=== PATIENT | male | born 1945 | race Caucasian/White ===

== ENCOUNTER 2016-05-20 10:21 | Emergency (ER) | payer OTHER ==
[2016-05-20] MEDS ORDERED: ASPIRIN PO STA (10:31)
[2016-05-20] MEDS ORDERED: NITROGLYCERIN SL PRN (10:31)
[2016-05-20 10:42] LABS: MANUAL DIFF NEEDED? NO
--- NOTE | 2016-05-20 10:43 | PROVIDER DOCUMENTATION ---
HPI-Chest Pain - General Source: patient - History of Present Illness-CP Chest Pain Radiation: reports: arms (left arm, left elbow) Quality of Pain: reports: aching, sharp Severity in ED: mild Onset/Duration: 3 days ago Timing: still present Context/Activities at Onset: reports: other (starts when using left arm) Associated Symptoms: denies: fever/chills, headache, vomiting Nitro Today/Relief: no nitro taken today Aspirin Treatment Today: 81 mg x 1 Prior Chest Pain/Cardiac Workup: reports: no prior chest pain Similar Symptoms Previously?: No Recently Seen Here or By Another Healthcare Provider: No <Felisha Lackey - Last Filed: 05/20/16 10:38> <Sherri Mayo - Last Filed: 05/20/16 14:13> - General Chief Complaint: Chest Pain Stated Complaint: CHEST PAIN Time Seen by Provider: 05/20/16 10:38 Allergies/Adverse Reactions: Patient Allergies Allergy/AdvReac Type Severity Reaction Status Date / Time No Known Allergies Allergy Verified 05/20/16 11:04 Home Medications: Home Medication List Medication Instructions Recorded Confirmed Last Taken Type Amlodipine [Norvasc] 10 mg PO DAILY 05/20/16 05/20/16 05/20/16 06:30 History Aspirin [Nelli Chewable Aspirin] 81 mg PO DAILY 05/20/16 05/20/16 05/20/16 08: 00 History Brimonidine/Timolol Ophth Soln 1 drop .SEE ORDER BID 05/20/16 05/20/16 05/20/16 08:00 History [Combigan Ophth Soln] Celecoxib [Celebrex] 200 mg PO DAILY 05/20/16 05/20/16 05/20/16 08:00 History Clopidogrel Bisulfate [Plavix] 75 mg PO DAILY 05/20/16 05/20/16 05/20/16 06:30 History Esomeprazole Magnesium [Nexium] 20 mg PO DAILY 05/20/16 05/20/16 05/20/16 08:00 History Fexofenadine [Margi] 180 mg PO DAILY 05/20/16 05/20/16 05/20/16 08:00 History Hydrocodone/APAP 7.5 mg/325 mg 7.5 mg PO TID 05/20/16 05/20/16 05/20/16 08:00 History [[place]-7.5] Latanoprost 0.005% Oph Soln 1 drop HS 05/20/16 05/20/16 05/19/16 20:00 History [Xalatan 0.005% Oph Soln] Losartan [Cozaar] 100 mg PO DAILY 05/20/16 05/20/16 05/20/16 06:30 History Pregabalin [Lyrica] 150 mg PO BID 05/20/16 05/20/16 05/20/16 08:00 History Simvastatin 80 mg PO DAILY 05/20/16 05/20/16 05/20/16 06:30 History - History of Present Illness-CP Nature of Presenting Problem: pt is a 70 y/o m present to the Er with complaints of chest pain. pt states chest pain started friday and radiates to the left arm down to the left elbow. chest pain is not consistent it is intermittent. pt denies hx of heart problems. father had a pacemaker. pt denies cough or epitaxis. pt states he has some nasal congestion. pt has hx of HTN, Hyperlipidemia, stents to the left extremity, glaucoma. (Felisha Lackey) Review of Systems - Adult - REVIEW OF SYSTEMS - ADULT Constitutional: denies: chills, fatique, night sweats, weight gain Eyes: reports: no symptoms reported Ears, Nose, Mouth & Throat: reports: no symptoms reported Cardiovascular: reports: chest pain. denies: edema, syncope Respiratory: denies: cough, shortness of breath, wheezing Gastrointestinal: reports: no symptoms reported Genitourinary: reports: no symptoms reported Musculoskeletal: reports: no symptoms reported Integumentary: reports: no symptoms reported Neurological: reports: no symptoms reported Psychiatric: reports: no symptoms reported Endocrine: reports: no symptoms reported Hematologic/Lymphatic: reports: no symptoms reported Allergic/Immunologic: reports: no symptoms reported All Other Systems: Reviewed and Negative <Felisha Lackey - Last Filed: 05/20/16 10:38> Past History - Adult - PAST MEDICAL HISTORY-ADULT Review of Records: reports: Nursing Assessment Review Cardiovascular: reports: HTN, hyperlipidemia Respiratory: denies: asthma, bronchitis, COPD Musculoskeletal: reports: neck/back injury Endocrine/Immune: denies: Diabetes - PRIOR SURGERIES/PROCEDURES Surgical/Procedure History: reports: colonoscopy, cardiac stent, back/neck ( back fusion ) - PRIOR HOSPITALIZATIONS Prior Hospitalizations: reports: none - IMMUNIZATION STATUS Childhood Immunizations: See Nurse Assessment Flu Vaccine: See Nurse Assessment - SOCIAL HISTORY Smoking: cigarettes, less than 1 pack/day Provider spent 3-5 mins advising pt. on dangers of tobacco.: Discussed manners to quit use, and f/u contacts for add'l counseling. Substance Use: none/never Alcohol Use Frequency: never <Felisha Lackey - Last Filed: 05/20/16 10:38> Physical Exam-General - PHYSICAL EXAM-ADULT Initial Vital Signs Reviewed: Yes - CONSTITUTIONAL General Appearance: appears well, alert, no apparent distress - EYES Eyes: PERRL/EOMI, pink conjunctivae - HEAD, EARS, NOSE, MOUTH & THROAT HENMT: moist mucous membranes, normal ENT inspection, TMs normal, pharynx normal - NECK Neck: non-tender, full range of motion - RESPIRATORY Respiratory: lungs clear, rales (basiallar, lower bases), wheezing (scatter expiratoty), other (Left chest TTP) - CARDIOVASCULAR Cardiovascular: normal peripheral pulses, regular rate, rhythm, no edema, no gallop, no JVD - GASTROINTESTINAL (ABDOMEN) Abdominal Exam: normal bowel sounds, non tender, soft - MUSCULOSKELETAL Back Exam: normal inspection Extremity: normal range of motion, non-tender, normal gait, normal inspection, no pedal edema, no calf tenderness, normal capillary refill - SKIN Integumentary: normal color, normal turgor, warm/dry - NEUROLOGIC Neurologic: grossly normal, no motor/sensory deficits - PSYCHIATRIC Psych/Mental Status: normal mood/affect, normal thought content, normal thought process, oriented x 3 <Felisha Lackey - Last Filed: 05/20/16 10:38> Progress <Felisha Lackey - Last Filed: 05/20/16 10:38> - EKG 1 Time of EKG reading by physician:: 10:30 EKG Read and Signed by:: Sherri Mayo EKG Interpretation (*Must complete 3 of following elements*): Normal Rate: 66 Rhythm: nsr [place]: normal NM Interval: normal ST Wave: non-specific ST changes (T wave inverted lead III) - XRAY 1 XRAY Study: Chest (R subhilar infiltrates) Impression: Abnormal - CT/MRI 1 CT Study: Thorax Impression: Abnormal (no pulmonary embolus, enlarged mediastinal and hilar nodes , emphysema) - CHANGE OF SHIFT REPORT (ED Provider) Tentative Impression of Patient: admit recommended. pt refuses. R/o unstable angina, hilar adenopathy <Sherri Mayo - Last Filed: 05/20/16 14:13> - PLAN OF CARE/RESULTS Progress/Plan/Lab Results: Laboratory Tests 05/20/16 10:33 WBC 6.25 RBC 4.66 L Hgb 14.1 Hct 41.5 L MCV 89.1 MCH 30.3 MCHC 34.0 RDW Std Deviation 14.1 Plt Count 202 MPV 9.3 Immature Gran % (Auto) 0.3 Neut % (Auto) 54.5 Lymph % (Auto) 32.8 [place] % (Auto) 8.0 Eos % (Auto) 3.4 Baso % (Auto) 1.0 H Immature Gran # (Auto) 0.02 Neut # (Auto) 3.41 Lymph # (Auto) 2.05 [place] # (Auto) 0.50 Eos # (Auto) 0.21 Baso # (Auto) 0.06 Orders Category Date Time Status Cardiac Monitoring DIRECTED Care 05/20/16 10:32 Active Saline Loc NOW Care 05/20/16 10:32 Active CHEST-2 VIEWS [RAD] Stat Exams 05/20/16 10:32 Taken CBC WITH ELECTRONIC DIFF [HEME] Stat Lab 05/20/16 10:33 Completed CK PROFILE [SP CHEM] Stat Lab 05/20/16 10:33 Received COMPREHENSIVE METABOLIC PANEL [CHEM] Stat Lab 05/20/16 10:33 Received D-DIMER [CHEM] Stat Lab 05/20/16 10:33 Received MAGNESIUM [CHEM] Stat Lab 05/20/16 10:33 Received PRO B-NATRIURETIC PEPTIDE Stat Lab 05/20/16 10:33 Received PROTIME WITH INR [COAG] Stat Lab 05/20/16 10:33 Received PTT [COAG] Stat Lab 05/20/16 10:33 Received TROPONIN T Stat Lab 05/20/16 10:33 Received Aspirin Med 05/20/16 10:31 Discontinued 325 mg PO STAT STA Nitroglycerin Sl [Nitroglycerin] Med 05/20/16 10:31 Active 0.4 mg SL Q5M PRN PRN EKG [EKG] Stat Ther 05/20/16 10:26 Ordered Vital Signs - 24 hr 05/20/16 10:31 Temperature 97.7 F Pulse Rate 69 Respiratory 16 Rate Blood Pressure 153/75 O2 Sat by Pulse 98 Oximetry (Felisha Lackey) Laboratory Tests 05/20/16 05/20/16 05/20/16 10:33 10:33 10:33 WBC 6.25 RBC 4.66 L Hgb 14.1 Hct 41.5 L MCV 89.1 MCH 30.3 MCHC 34.0 RDW Std Deviation 14.1 Plt Count 202 MPV 9.3 Immature Gran % (Auto) 0.3 Neut % (Auto) 54.5 Lymph % (Auto) 32.8 [place] % (Auto) 8.0 Eos % (Auto) 3.4 Baso % (Auto) 1.0 H Immature Gran # (Auto) 0.02 Neut # (Auto) 3.41 Lymph # (Auto) 2.05 [place] # (Auto) 0.50 Eos # (Auto) 0.21 Baso # (Auto) 0.06 PT INR PTT (Actin FS) D-Dimer 2.57 H Sodium 139 Potassium 3.8 Chloride 101 Carbon Dioxide 24 L Anion Gap 14 BUN 13 Creatinine 1.0 Estimated GFR/1.73 m2 > 60 BUN/Creatinine Ratio 13 Glucose 77 Calculated Osmolality 276 Calcium 8.8 Magnesium 1.8 Total Bilirubin 0.27 AST 13 ALT 7 L Alkaline Phosphatase 69 Creatine Kinase 62 Troponin T Azz-U-Ldbxmtnsgrq Pept Total Protein 7.2 Albumin 3.8 Globulin 3.4 Albumin/Globulin Ratio 1.1 05/20/16 05/20/16 05/20/16 10:33 10:33 10:33 WBC RBC Hgb Hct MCV MCH MCHC RDW Std Deviation Plt Count MPV Immature Gran % (Auto) Neut % (Auto) Lymph % (Auto) [place] % (Auto) Eos % (Auto) Baso % (Auto) Immature Gran # (Auto) Neut # (Auto) Lymph # (Auto) [place] # (Auto) Eos # (Auto) Baso # (Auto) PT 10.9 INR 1.03 PTT (Actin FS) 28.7 D-Dimer Sodium Potassium Chloride Carbon Dioxide Anion Gap BUN Creatinine Estimated GFR/1.73 m2 BUN/Creatinine Ratio Glucose Calculated Osmolality Calcium Magnesium Total Bilirubin AST ALT Alkaline Phosphatase Creatine Kinase Troponin T < 0.010 Ogc-L-Hxdeaeecfwl Pept 71 Total Protein Albumin Globulin Albumin/Globulin Ratio Orders Category Date Time Status Cardiac Monitoring DIRECTED Care 05/20/16 10:32 Active Saline Loc NOW Care 05/20/16 10:32 Active ANGIOGRAM/PULMONARY ARTERIES [CT] Stat Exams 05/20/16 11:52 Completed CHEST-2 VIEWS [RAD] Stat Exams 05/20/16 10:32 Draft CBC WITH ELECTRONIC DIFF [HEME] Stat Lab 05/20/16 10:33 Completed CK PROFILE [SP CHEM] Stat Lab 05/20/16 10:33 Completed COMPREHENSIVE METABOLIC PANEL [CHEM] Stat Lab 05/20/16 10:33 Completed D-DIMER [CHEM] Stat Lab 05/20/16 10:33 Completed MAGNESIUM [CHEM] Stat Lab 05/20/16 10:33 Completed PRO B-NATRIURETIC PEPTIDE Stat Lab 05/20/16 10:33 Completed PROTIME WITH INR [COAG] Stat Lab 05/20/16 10:33 Completed PTT [COAG] Stat Lab 05/20/16 10:33 Completed TROPONIN T Stat Lab 05/20/16 10:33 Completed Aspirin Med 05/20/16 10:31 Discontinued 325 mg PO STAT STA Nitroglycerin Med 05/20/16 10:54 Discontinued 1 inch TOP NOW ONE Nitroglycerin Sl [Nitroglycerin] Med 05/20/16 10:31 Active 0.4 mg SL Q5M PRN PRN EKG [EKG] Stat Ther 05/20/16 10:26 Ordered Vital Signs Temp Pulse Resp BP Pulse Ox 05/20/16 12:26 61 14 164/83 97 05/20/16 10:31 97.7 F 69 16 153/75 98 No Known Allergies Allergy (Verified 05/20/16 11:04) Amlodipine [Norvasc] 10 mg PO DAILY 05/20/16 Aspirin [Nelli Chewable Aspirin] 81 mg PO DAILY 05/20/16 Brimonidine/Timolol Ophth Soln [Combigan Ophth Soln] 1 drop .SEE ORDER BID 05/20 Celecoxib [Celebrex] 200 mg PO DAILY 05/20/16 Clopidogrel Bisulfate [Plavix] 75 mg PO DAILY 05/20/16 Esomeprazole Magnesium [Nexium] 20 mg PO DAILY 05/20/16 Fexofenadine [Margi] 180 mg PO DAILY 05/20/16 Hydrocodone/APAP 7.5 mg/325 mg [[place]-7.5] 7.5 mg PO TID 05/20/16 Latanoprost 0.005% Oph Soln [Xalatan 0.005% Oph Soln] 1 drop HS 05/20/16 Losartan [Cozaar] 100 mg PO DAILY 05/20/16 Pregabalin [Lyrica] 150 mg PO BID 05/20/16 Simvastatin 80 mg PO DAILY 05/20/16 Laboratory 05/20/16 05/20/16 05/20/16 10:33 10:33 10:33 WBC RBC Hgb Hct MCV MCH MCHC RDW Std Deviation Plt Count MPV Immature Gran % (Auto) Neut % (Auto) Lymph % (Auto) [place] % (Auto) Eos % (Auto) Baso % (Auto) Immature Gran # (Auto) Neut # (Auto) Lymph # (Auto) [place] # (Auto) Eos # (Auto) Baso # (Auto) PT 10.9 INR 1.03 PTT (Actin FS) 28.7 D-Dimer Sodium Potassium Chloride Carbon Dioxide Anion Gap BUN Creatinine Estimated GFR/1.73 m2 BUN/Creatinine Ratio Glucose Calculated Osmolality Calcium Magnesium Total Bilirubin AST ALT Alkaline Phosphatase Creatine Kinase Troponin T < 0.010 Vzu-T-Cvbrisrxtwt Pept 71 Total Protein Albumin Globulin Albumin/Globulin Ratio 05/20/16 05/20/16 05/20/16 10:33 10:33 10:33 WBC 6.25 RBC 4.66 L Hgb 14.1 Hct 41.5 L MCV 89.1 MCH 30.3 MCHC 34.0 RDW Std Deviation 14.1 Plt Count 202 MPV 9.3 Immature Gran % (Auto) 0.3 Neut % (Auto) 54.5 Lymph % (Auto) 32.8 [place] % (Auto) 8.0 Eos % (Auto) 3.4 Baso % (Auto) 1.0 H Immature Gran # (Auto) 0.02 Neut # (Auto) 3.41 Lymph # (Auto) 2.05 [place] # (Auto) 0.50 Eos # (Auto) 0.21 Baso # (Auto) 0.06 PT INR PTT (Actin FS) D-Dimer 2.57 H Sodium 139 Potassium 3.8 Chloride 101 Carbon Dioxide 24 L Anion Gap 14 BUN 13 Creatinine 1.0 Estimated GFR/1.73 m2 > 60 BUN/Creatinine Ratio 13 Glucose 77 Calculated Osmolality 276 Calcium 8.8 Magnesium 1.8 Total Bilirubin 0.27 AST 13 ALT 7 L Alkaline Phosphatase 69 Creatine Kinase 62 Troponin T Ynl-W-Xzfdpveuyke Pept Total Protein 7.2 Albumin 3.8 Globulin 3.4 Albumin/Globulin Ratio 1.1 (Sherri Mayo) Departure <Felisha Lackey - Last Filed: 05/20/16 10:38> - Departure Time of Disposition Order: 13:50 Certified Medical Emergency: Emergent <Sherri Mayo - Last Filed: 05/20/16 14:13> - Departure DIAGNOSIS: Chest pain, Hilar lymphadenopathy Disposition: HOME 01 Condition: Fair Additional Instructions: You have refused admission for further evaluation today. Continue your current medication. Call your doctor for further evaluation.. You need further evaluation with a branch specialist to be sure your pain is not related to your heart. You need further evaluation of the lymph node swelling in your lungs. Return to the emrgency department if you have worsening chest pain or shortness of breath. ED Follow Up Instructions: You have been treated by a care provider in the Emergency Department. These instructions are being provided to you so you can have an understanding of how to care for yourself upon discharge. Upon discharge from the Emergency Department, you are responsible for making arrangements for follow-up care by a physician of your choice. Take all prescribed medications as directed. Return to the Emergency Department immediately for any new or worsening symptoms. You may call the Physician Referral phone number at [phone] to obtain a list of Physicians who are taking new patients. Referrals: Hermes Stanton [Primary Care Provider] - Attestation - Scribe Verification/Attestation Scribe:: Felisha Lackey Acting as Scribe for:: Sherri Mayo Scribe documention review:: This chart was documented by a scribe and accurately reflects the service the provider performed and the decisions made by the provider. <Felisha Lackey - Last Filed: 05/20/16 10:38> Physician Attestation - Physician Attestation I, the provider, attest to the following statement:: Sherri Mayo Physician documentation Attestation:: This documentation recorded by the scribe accurately reflects the service I personally performed and the decisions made by me. <Sherri Mayo - Last Filed: 05/20/16 14:13>
[2016-05-20 10:44] LABS: EOS# 0.21 X1000 (0.0-0.7); EOS% 3.4 % (0.0-10.0); HEMATOCRIT 41.5 % (42.0-52.0); HEMOGLOBIN 14.1 g/dL (14.0-18.0); IMM GRAN# 0.02 X1000 (0.0-0.04); IMM GRAN% 0.3 % (0.0-0.5); LYMPH# 2.05 X1000 (1.2-3.4); LYMPH% 32.8 % (20.5-51.1); MCH 30.3 PG (27-31); MCV 89.1 FL (81-99); MPV 9.3 FL (7.4-10.4); NEUT% 54.5 % (42.2-75.2); PLT 202 X1000 (130-400); RBC 4.66 XMIL (4.7-6.1)
[2016-05-20 10:53] LABS: INR 1.03; PROTIME 10.9 Seconds (9.2-11.7); PTT 28.7 Seconds (22.0-36.0)
[2016-05-20] MEDS ORDERED: NITROGLYCERIN TOP ONE (10:54)
--- NOTE | 2016-05-20 11:00 | Diag Imaging Result Document ---
PROCEDURE NAME: CHEST-2 VIEWS - 05/20/2016 CHEST X-RAY, TWO VIEWS: COMPARISON: None. FINDINGS: There are thoracolumbar spine fusion rods. There is abnormal density of the right paratracheal stripe. There is ill-defined patchy infiltrate in the lung bases, most notably at the right infrahilar region. No pneumothorax or pleural effusion. The heart size is grossly normal. IMPRESSION: 1. Infrahilar infiltrate on the right. 2. Probable mediastinal adenopathy best seen at the right paratracheal stripe. 3. Consider a chest CT.
[2016-05-20 11:03] LABS: AGAP 14; ALBUMIN 3.8 g/dL (3.5-5.0); ALKALINE PHOSPHATASE 69 U/L (32-122); BUN 13 mg/dL (8-22); CALCIUM 8.8 mg/dL (8.8-10.2); CHLORIDE 101 mmol/L (98-107); CK PROFILE 62 U/L (24-204); COSMO 276; GOT 13 U/L (10-34); GPT 7 U/L (10-44); MAGNESIUM 1.8 mg/dL (1.5-2.7); POTASSIUM 3.8 mmol/L (3.5-5.1); SODIUM 139 mmol/L (136-145); TCO2 24 mmol/L (25-35); TOTAL BILIRUBIN 0.27 mg/dL (0.20-1.00); TOTAL PROTEIN 7.2 g/dL (6.3-8.3)
--- NOTE | 2016-05-20 13:14 | Diag Imaging Result Document ---
PROCEDURE NAME: ANGIOGRAM/PULMONARY ARTERIES - 05/20/2016 CT CHEST WITH INTRAVENOUS CONTRAST: COMPARISON: No comparison films. FINDINGS: There are multiple abnormally enlarged mediastinal and hilar lymph nodes bilaterally. Trace left pleural fluid. No right-sided effusion. No thoracic aortic aneurysm or dissection. Normal opacification of the pulmonary arteries and their major branches. There are multiple subcentimeter nodules scattered in the lungs. There is also a calcified granuloma in the left upper lobe with several small calcified left hilar lymph nodes. No enlarged lymph nodes in the axilla. There are several prominent lymph nodes in the left lower neck. IMPRESSION: 1. Abnormally enlarged mediastinal and hilar lymph nodes bilaterally. 2. No pulmonary emboli. 3. Nonspecific subcentimeter nodules scattered in the lungs which could represent metastases although they may simply be related to a prior infection. 4. Tiny left effusion. 5. Emphysema. A preliminary report was given at 1:05 p.m.. MTDD
[2016-05-20 14:16] VITALS: BP 136/84
--- NOTE | 2016-05-20 14:38 | EKG Report ---
Test Performed on : 05/20/2016 10:30:25 AM Test Reason : chest pain Blood Pressure : / mmHG Vent. Rate : 066 BPM Atrial Rate : 066 BPM P-R Int : 168 ms QRS Dur : 098 ms QT Int : 410 ms P-R-T Axes : 059 071 020 degrees QTc Int : 429 ms Normal sinus rhythm. Normal ECG No previous ECGs available Unconfirmed Result
== END 2016-05-20 14:45 | disposition home or self-care (01) ==
LOC: ED 10:21
DX: R07.89 Other chest pain (principal); R59.0 Localized enlarged lymph nodes; M79.602 Pain in left arm; M25.522 Pain in left elbow; R09.81 Nasal congestion; R06.2 Wheezing; I10 Essential (primary) hypertension; E78.5 Hyperlipidemia, unspecified; Z79.899 Other long term (current) drug therapy; F17.210 Nicotine dependence, cigarettes, uncomplicated; Z79.82 Long term (current) use of aspirin; Z71.6 Tobacco abuse counseling; Z95.5 Presence of coronary angioplasty implant and graft; Z98.1 Arthrodesis status
CPT/HCPCS: 71020; 71275; 80053; 82550; 83735; 83880; 84484; 85025; 85379; 85610; 85730; 93005; Q9967